=== PATIENT | female | born 1960 | race African-American/Black ===

== ENCOUNTER 2017-04-02 10:06 | Emergency (ER) | payer MEDICARE, OTHER ==
[2017-04-02] MEDS ORDERED: Acetaminophen/Codeine 30-300mg Tablet ONE (10:23)
== END 2017-04-02 10:30 | disposition home or self-care (01) ==
LOC: BURERS 10:06
DX: S92.402A Displaced unspecified fracture of left great toe, initial encounter for closed fracture (principal); M19.90 Unspecified osteoarthritis, unspecified site; Z79.899 Other long term (current) drug therapy; W20.8XXA Other cause of strike by thrown, projected or falling object, initial encounter
CPT/HCPCS: 99283